=== PATIENT | female | born 2000 | race Hispanic/Latino ===

== ENCOUNTER 2020-10-03 23:49 | Emergency (ER) | payer SELFPAY ==
[2020-10-04] MEDS ORDERED: ACETAMINOPHEN 500 MG TAB PO ONE (00:19)
[2020-10-04] MEDS ORDERED: METOCLOPRAMIDE 10 MG TAB PO ONE (00:20)
[2020-10-04] MEDS ORDERED: FAMOTIDINE 20 MG TAB PO ONE (00:20)
[2020-10-04 00:48] LABS: Basophils % (Auto) 0.4 % (0.0-1.8); Eosinophils # (Auto) 0.2 K/mm3 (0.0-0.4); Hematocrit 38.9 % (30.3-42.9); Hemoglobin 13.6 gm/dl (10.1-14.3); Lymphocytes # (Auto) 3.1 K/mm3 (1.2-5.4); Lymphocytes % (Auto) 25.9 % (13.4-35.0); Mean Corpuscular HGB Conc 35 % (30-34); Mean Corpuscular Volume 94 fl (79-97); Monocytes # (Auto) 1.1 K/mm3 (0.0-0.8); Platelet Count 296 K/mm3 (140-440); Red Blood Count 4.14 M/mm3 (3.65-5.03); Red Cell Distribution Width 12.9 % (13.2-15.2)
[2020-10-04 00:50] VITALS: BP 122/49
[2020-10-04 01:03] LABS: Alanine Aminotransferase 26 units/L (7-56); Albumin 4.3 g/dL (3.9-5); Blood Urea Nitrogen 10 mg/dL (7-17); Calcium 9.3 mg/dL (8.4-10.2); Hemolysis Index 10
[2020-10-04 01:22] LABS: BUN/Creatinine Ratio 20
--- NOTE | 2020-10-04 01:51 | Ultrasound Report ---
ULTRASOUND OBSTETRIC Indication: Pelvic pain, , cramping Findings: Gestational sac is seen within the uterus measuring 2.7 mm. This correlates to a 5 week 0 day gestati on. There is a small structure within which may represent small pole. No heart tones are identified at this time. There is minimal free fluid. There is a 2.9 cm cyst in the right ovary. Impression: There is a small gestational sac within the endometrial cavity correlating to a 5 week gestation. Sma ll structure seen within it possibly representing pole. No heart tones can be identified at this time. Correlation with serum beta hCG level is recommended. Follow-up ultrasound should be ob tained as is clinically warranted. Signer Name: Kraig Fuller MD Signed: 10/04/2020 1:47 AM Workstation Name: [id number]
[2020-10-04 01:56] LABS: Bilirubin,Urine NEG (Negative); Blood,Urine NEG (Negative); Color,Urine Yellow (Yellow); Mucus,Urine FEW /HPF; Protein,Urine <15 mg/dL mg/dL (Negative)
--- NOTE | 2020-10-04 02:32 | Emergency Department Report ---
ED Female HPI - General Chief complaint: Vaginal Bleeding Stated complaint: APPROX 4WK PREG/CRAMPING/SPOTTING Source: patient Mode of arrival: Ambulatory Limitations: No Limitations - History of Present Illness Initial comments: Patient is a A0 20-year-old white female with approximately 5 weeks gestation who presents to the ED with suprapubic pain, vaginal spotting inte rmittently for the last 5 days, worse in the last 24 hours. Patient states that she just got diagnosed with positive about a week ago at another hospital but developed vaginal spotting and worsening suprapubic pain in the last 5 days. Patient states that the pain is worse with movement and describes it as cramping constant sharp pain. Patient denies fever, chills, dysuria, urinary frequency and urgency, vaginal discharge, nausea, vomiting, sore throat, chest pain, shortness of breath, headache or dizziness and syncope. MD Complaint: vaginal bleeding, dysuria, pelvic pain, other () -: Sudden, days(s) (5) Location: suprapubic, other (vaginal) Radiation: non-radiating Severity: severe Severity scale (0 -10): 7 Quality: sharp, aching Consistency: constant Improves with: none Worsens with: movement Are you Now?: Yes (5 weeks gestation) Last Menstrual Period: 08/19/20 EDC: 05/26/21 Associated Symptoms: denies other symptoms, vaginal bleeding, abdominal pain. denies: vaginal discharge, nausea/vomiting, fever/chills, headaches, loss of appetite, dysuria, hematuria, rash, seizure, shortness of breath, other - Related Data Sexually active: Yes : 1 Para: 0 A: 0 Previous Rx's Medication Instructions Recorded Last Taken Type Acetaminophen [Tylenol] 500 mg PO Q6HR PRN #30 tablet 10/04/20 Unknown Rx Pnv,Calcium 72/Iron,Carb/Folic 1 each PO DAILY #60 tablet 10/04/20 Unknown Rx [ Plus Iron Tablet] Promethazine [Phenergan] 25 mg PO Q6HR PRN #30 tab 10/04/20 Unknown Rx Allergies Allergy/AdvReac Type Severity Reaction Status Date / Time amphetamine [From Adderall] Allergy Hives Verified 10/04/20 00:40 dextroamphetamine Allergy Hives Verified 10/04/20 00:40 [From Adderall] ED Review of Systems ROS: Stated complaint: APPROX 4WK PREG/CRAMPING/SPOTTING Other details as noted in HPI Constitutional: denies: chills, fever Eyes: denies: eye pain, eye discharge, vision change ENT: denies: ear pain, throat pain Respiratory: denies: cough, shortness of breath, wheezing Cardiovascular: denies: chest pain, palpitations Endocrine: no symptoms reported Gastrointestinal: abdominal pain (Pelvic pain). denies: nausea, diarrhea Genitourinary: abnormal menses (Vaginal bleeding and spotting). denies: urgency, dysuria, discharge Musculoskeletal: denies: back pain, joint swelling, arthralgia Skin: denies: rash, lesions Neurological: denies: headache, weakness, paresthesias Psychiatric: denies: anxiety, depression Hematological/Lymphatic: denies: easy bleeding, easy bruising ED Past Medical Hx - Past Medical History Previous Medical History?: Yes Additional medical history: Congenital Bowel Problem - Surgical History Past Surgical History?: Yes Additional Surgical History: Repair of congenital bowel problem. Tonsillectomy - Social History Smoking Status: Current Every Day Smoker Substance Use Type: None - Medications Home Medications: Home Medications Medication Instructions Recorded Confirmed Last Taken Type Acetaminophen [Tylenol] 500 mg PO Q6HR PRN #30 tablet 10/04/20 Unknown Rx Pnv,Calcium 72/Iron,Carb/Folic 1 each PO DAILY #60 tablet 10/04/20 Unknown Rx [ Plus Iron Tablet] Promethazine [Phenergan] 25 mg PO Q6HR PRN #30 tab 10/04/20 Unknown Rx ED Physical Exam - General Limitations: No Limitations General appearance: alert, in no apparent distress - Head Head exam: Present: atraumatic, normocephalic, normal inspection - Eye Eye exam: Present: normal appearance, PERRL, EOMI Pupils: Present: normal accommodation - ENT ENT exam: Present: normal exam, normal orophraynx, mucous membranes moist, TM's normal bilaterally, normal external ear exam - Neck Neck exam: Present: normal inspection, full ROM - Respiratory Respiratory exam: Present: normal lung sounds bilaterally. Absent: respiratory distress, wheezes, rales, chest wall tenderness, decreased breath sounds, prolonged expiratory - Cardiovascular Cardiovascular Exam: Present: regular rate, normal rhythm, normal heart sounds. Absent: systolic murmur, diastolic murmur, rubs, gallop - GI/Abdominal GI/Abdominal exam: Present: soft, tenderness (Palpable mild suprapubic tenderness), normal bowel sounds. Absent: distended, guarding, rebound, rigid, hyperactive bowel sounds - Bi-manual exam: Present: other (Pelvic exam deferred) - Extremities Exam Extremities exam: Present: normal inspection, full ROM, normal capillary refill - Back Exam Back exam: Present: normal inspection, full ROM. Absent: tenderness, CVA tenderness (R), CVA tenderness (L), muscle spasm, paraspinal tenderness, vertebral tenderness - Neurological Exam Neurological exam: Present: alert, oriented X3, CN II-XII intact, normal gait, reflexes normal - Psychiatric Psychiatric exam: Present: normal affect, normal mood - Skin Skin exam: Present: warm, dry, intact, normal color. Absent: rash ED Course Vital Signs 10/04/20 10/04/20 00:24 01:42 Temperature 97.9 F Pulse Rate 82 Respiratory 20 20 Rate Blood Pressure 122/49 O2 Sat by Pulse 97 Oximetry ED Medical Decision Making - Lab Data Result diagrams: 10/04/20 00:26 10/04/20 00:26 - Radiology Data Radiology results: report reviewed, image reviewed Findings [facility] [address] [place] [address] Ultrasound Report Signed Patient: TALHA CHRISTOPHER MR#: [id number] : 2000 Acct:[id number] Age/Sex: 20 / F ADM Date: 10/03/20 Loc: ED Attending Dr: Ordering Physician: CHELSI VALERIO Date of Service: 10/04/20 Procedure(s): US OB transvaginal Accession Number(s): [id number] cc: CHELSI VALERIO ULTRASOUND OBSTETRIC Indication: Pelvic pain, , cramping Findings: Gestational sac is seen within the uterus measuring 2.7 mm. This correlates to a 5 week 0 day gestation. There is a small structure within which may represent small pole. No heart tones are identified at this time. There is minimal free fluid. There is a 2.9 cm cyst in the right ovary. Impression: There is a small gestational sac within the endometrial cavity correlating to a 5 week gestation. Small structure seen within it possibly representing pole. No heart tones can be identified at this time. Correlation with serum beta hCG level is recommended. Follow-up ultrasound should be obtained as is clinically warranted. Signer Name: Kraig Fuller MD Signed: 10/04/2020 1:47 AM Workstation Name: [id number] Transcribed By: SS Dictated By: Kraig Fuller MD Electronically Authenticated By: Kraig Fuller MD Signed Date/Time: 10/04/20146 DD/ 3 TD/TT: Findings [facility] [address] [place] [address] Ultrasound Report Signed Patient: TALHA CHRISTOPHER MR#: [id number] : 2000 Acct:[id number] Age/Sex: 20 / F ADM Date: 10/03/20 Loc: ED Attending Dr: Ordering Physician: CHELSI VALERIO Date of Service: 10/04/20 Procedure(s): US OB <= 14 weeks fetus Accession Number(s): [id number] cc: CHELSI VALERIO ULTRASOUND OBSTETRIC Indication: Pelvic pain, , cramping Findings: Gestational sac is seen within the uterus measuring 2.7 mm. This correlates to a 5 week 0 day gestation. There is a small structure within which may represent small pole. No heart tones are identified at this time. There is minimal free fluid. There is a 2.9 cm cyst in the right ovary. Impression: There is a small gestational sac within the endometrial cavity correlating to a 5 week gestation. Small structure seen within it possibly representing pole. No heart tones can be identified at this time. Correlation with serum beta hCG level is recommended. Follow-up ultrasound should be obtained as is clinically warranted. Signer Name: Kraig Fuller MD Signed: 10/04/2020 1:47 AM Workstation Name: [id number] Transcribed By: SS Dictated By: Kraig Fuller MD Electronically Authenticated By: Kraig Fuller MD Signed Date/Time: 10/04/20146 DD/ 3 TD/TT: - Medical Decision Making This is a A0 20-year-old white female with approximately 5 weeks gestation who presents to the ED with suprapubic pain, vaginal spotting intermittently for the last 5 days, worse in the last 24 hours. Patient states that she just got diagnosed with positive about a week ago at another hospital but developed vaginal spotting and worsening suprapubic pain in the last 5 days. Patient states that the pain is worse with movement and describes it as cramping constant sharp pain. In the ED, patient is alert and oriented x3 and is not in any distress. Lab test results were reviewed and are all nonactionable and hCG quant is 1310, and there is acute leukocytosis of 12,000. The rest of the lab test results are nonactionable. Transvaginal ultrasound shows a small gestational sac within the endometrial cavity correlating to a 5 week gestation. Small structure seen within it possibly representing pole. No heart tones can be identified at this time. Correlation with serum beta hCG level is recommended. Follow-up ultrasound should be obtained as is clinically warranted. Patient was treated for pain in the ED with Tylenol and antacids. On reevaluation, patient's pain is well controlled medication. Patient was discharged home and advised to maintain a complete pelvic rest and to take pain medication principally Tylenol as needed for pain. Patient was advised to follow-up with her REQUIREMENTS MANAGER physician in 3 to 5 days for reevaluation or return to the ED immediately if symptoms get worse. - Differential Diagnosis Threatened miscarriage; Ectopic; UTI; Ovarian cyst; Subchorionic bleed Critical care attestation.: If time is entered above; I have spent that time in minutes in the direct care of this critically ill patient, excluding procedure time. ED Disposition Clinical Impression: Threatened miscarriage in early , Intrauterine , Abdominal pain during in first trimester Disposition: DC-01 TO HOME OR SELFCARE Is pt being admited?: No Does the pt Need Aspirin: No Condition: Stable Instructions: Abdominal Pain, Adult, [id number], Threatened Miscarriage, Eas y-to-Read, Vaginal Bleeding During , First Trimester, [id number] Additional Instructions: All lab test results were reviewed and are all nonactionable. The transvaginal ultrasound showed a single intrauterine consistent with 5 weeks gestation. Therefore maintain a complete pelvic rest, take pain medication as needed which is mainly Tylenol for . Follow-up with your REQUIREMENTS MANAGER physician in 5 to 7 days for reevaluation. Return to the ED immediately if symptoms get worse. Prescriptions: Acetaminophen [Tylenol] 500 mg PO Q6HR PRN #30 tablet PRN Reason: Pain , Severe (7-10) Promethazine [Phenergan] 25 mg PO Q6HR PRN #30 tab PRN Reason: Nausea Pnv,Calcium 72/Iron,Carb/Folic [ Plus Iron Tablet] 1 each PO DAILY #60 tablet Referrals: CHARLENE SAINZ MD [Staff Physician] - 3-5 Days Time of Disposition: 02:34 Print Language: SLOVENIAN
== END 2020-10-04 04:00 | disposition home or self-care (01) ==
LOC: ED 23:49
DX: O20.0 Threatened abortion (principal); Z3A.01 Less than 8 weeks gestation of pregnancy; O99.331 Smoking (tobacco) complicating pregnancy, first trimester; Z79.899 Other long term (current) drug therapy; Z88.8 Allergy status to other drugs, medicaments and biological substances
CPT/HCPCS: 36415; 76801; 76817; 80053; 81001; 83690; 84702; 85025